=== PATIENT | male | born 1955 | race Caucasian/White ===

== ENCOUNTER 2019-02-12 12:33 | Emergency (ER) | payer OTHER ==
[~2019-02-12] VITALS: Ht 172.7 cm; Wt 79.4 kg
[2019-02-12 12:37] VITALS: Ht 172.7 cm; Wt 79.4 kg
[2019-02-12 15:13] VITALS: BP 102/78
== END 2019-02-12 15:13 | disposition home or self-care (01) ==
LOC: ED 12:33
DX: F10.129 Alcohol abuse with intoxication, unspecified (principal); Z88.0 Allergy status to penicillin; Y90.9 Presence of alcohol in blood, level not specified